=== PATIENT | male | born 1970 | race Caucasian/White ===

== ENCOUNTER 2020-12-05 17:58 | Emergency (ER) | payer OTHER ==
--- OUTSIDE RECORDS SUMMARY | 2020-12-05 18:01 | XMS REPORT | Continuity of Care Document ---
:1970 Author Organization [facility] t Address [address] [place] [address] Care Team Providers Name Role Phone SARMIENTO Attending Clinician Unavailable Problems Condition Condition Condition Status Onset Resolution Last Treating Co mments Source Name Details Category Date Date Treatment Clinician Date Cervical Cervical Problem Active Unive rs radicular radicular ity of pain pain [place] [facility] ans Degenerati Degenerati Problem Active U nivers ve ve ity of cervical cervical [place] spinal spinal Physici stenosis stenosis ans Cervical Cervical Problem Active Unive rs myelopathy myelopathy it y of [place] [facility] ans Right Right Problem Active Univers elbow pain elbow pain it y of [place] [facility] ans Rupture of Rupture of Problem Active U nivers distal distal ity of biceps biceps [place] tendon, tendon, Physici right, right, ans initial initial encounter encounter Allergies, Adverse Reactions, Alerts This patient has no known allergies or adverse reactions. Family History Family Member Diagnosis Comments Start Date Stop Date Source Unknown Family Family history of Family History University of Member diabetes mellitus [place] P [facility] Medications Ordered Filled Start Stop Current Ordering Indication Dosage Frequency Signature Comments Components Source Medication Medication Date Date Medication? Clinician (SIG) Name Name HYDROcodone HYDROcodone Yes SEBASTIÁN Take 1 Univers -Acetaminop -Acetaminop 2-25 SARMIENTO M.D. tablet ity of hen 5-325 hen 5-325 00:00: every 5-6 [place] MG Oral MG Oral 00 hours Physici Tablet Tablet daily for ans 7 days as needed for pain. traMADol traMADol 2014-10 Yes [place] 1 TAKE 1 [facility] HCl - 50 MG HCl - 50 MG 0-21 DODWAD TABLET ity of Oral Tablet Oral Tablet 00:00: M.D. EVERY 6 [place] 00 HOURS Physici NEEDED FOR ans PAIN. Gabapentin Gabapentin Yes [place] Take 1 cap Univers 300 MG Oral 300 MG Oral 9-11 DODWAD PO qhs for ity of Capsule Capsule 00:00: M.D. 3 days[place] by 1 tab ans PO BID for 3 days, taper up to 1 PO TID if tolerated by side effects amLODIPine- amLODIPine- Yes U nivers Olmesartan Olmesartan ity of TABS TABS [place] [facility] ans Bystolic Bystolic Yes Univers TABS TABS ity of [place] [facility] ans hydroCHLORO hydroCHLORO Yes U nivers thiazide thiazide ity of TABS TABS [place] [facility] ans Omeprazole- Omeprazole- Yes U nivers Sodium Sodium ity of Bicarbonate Bicarbonate [place] CAPS CAPS Physici ans metFORMIN metFORMIN Yes Unive rs HCl TABS HCl TABS ity of [place] Physici ans Vital Signs Vital Name Observation Time Observation Value Comments Source Systolic blood 2020-11-23 10:01:00 176 mm[Hg] [facility] pressure Physicians Diastolic blood 2020-11-23 10:01:00 88 mm[Hg] [facility] pressure Physicians Heart Rate 2020-11-23 10:01:00 76 /min [facility] Procedures Procedure Date / Time Performed Performing Clinician Sourc e [UTP] Ortho - Surgery 2020-11-23 00:00:00 [facility] Scheduling Physicians History of [place] [facility] [place] tendon surgery Physicians History of [place] [facility] xa surgery Physicians Plan of Care Planned Activity Planned Date Details Comments Source Diagnostic Test 2020-11-23 [UTP] [facility] Pending 00:00:00 Surgery Scheduling Physician s [code = [UTP] Ortho - Surgery Scheduling] Encounters Start End Encounter Admission Attending Care Care Encounter Source Date/Time Date/Time Type Type Clinicians Facility Department ID 2020-11-27 2020-11-27 RENEA Torres [facility] [id number] [facility] 10:00:00 10:00:00 SEBASTIÁN Mann, - Sugar Nelida M.D. [address] [place] Phys[facility] ans 2020-11-27 2020-11-27 Outpatient [id number] 05:03:00 05:03:00 [facility] 2020-11-23 2020-11-23 RENEA Torres [facility] [id number] [facility] 09:45:00 09:45:00 t; SEBASTIÁN SARMIENTO, - Sugar ity of [place] 2 POD Libby dutton M.D. 2 Physici ans Results This patient has no known results.
--- NOTE | 2020-12-05 20:10 | ER ---
Nurse's Notes [facility] Name: Landon Garcia Age: 50 yrs Sex: Male : 1970 Arrival Date: 12/05/2020 Time: 18:10 Bed 30 Private MD: Diagnosis: Right Upper Extremity Pain S/P Surgery Presentation: 12/05 18:25 Chief complaint: Patient states: had surgery on right arm last Monday , had distal iw bicep tendon repair done [facility] , was having a lot of pain last night and today from finger up to armpit is hurting, has not contacted the surgeon, has been taking hydrocodone but only for 7 days, was unsure if he is supposed to be in this much pain. Coronavirus screen: At this time, the client does not indicate any symptoms associated with coronavirus-19. Ebola Screen: Patient negative for fever greater than or equal to 101.5 degrees Fahrenheit, and additional compatible Ebola Virus Disease symptoms Patient denies exposure to infectious person. Patient denies travel to an Ebola-affected area in the 21 days before illness onset. No symptoms or risks identified at this time. Initial Sepsis Screen: Does the patient meet any 2 criteria? No. Patient's initial sepsis screen is negative. Does the patient have a suspected source of infection? No. Patient's initial sepsis screen is negative. Risk Assessment: Do you want to hurt yourself or someone else? Patient reports no desire to harm self or others. Onset of symptoms was December 05, 2020. 18:25 Method Of Arrival: Ambulatory iw 18:25 Acuity: EUGENE 3 iw Triage Assessment: 19:20 General: Appears in no apparent distress. Behavior is calm, cooperative. rr5 Historical: - Allergies: 18:28 No Known Allergies; iw - Home Meds: 18:28 Metformin Oral [Active]; amlodipine oral [Active]; Bystolic oral oral [Active]; iw Hydrochlorothiazide Oral [Active]; - PMHx: 18:28 Hypertension; Diabetes - NIDDM; iw - PSHx: 18:28 achilles tendon; iw - Immunization history:: Flu vaccine is not up to date. - Social history:: Smoking status: Patient denies any tobacco usage or history of. Screenin:30 Abuse screen: Denies threats or abuse. Denies injuries from another. Nutritional rr5 screening: No deficits noted. Tuberculosis screening: No symptoms or risk factors identified. Fall Risk None identified. Assessment: 19:20 General: Appears in no apparent distress. comfortable, Behavior is calm, cooperative, rr5 appropriate for age. 19:20 Pain: Complains of pain in right arm. Neuro: Level of Consciousness is awake, alert, rr5 obeys commands, Oriented to person, place, time. Cardiovascular: Capillary refill < 3 seconds Patient's skin is warm and dry. Respiratory: Airway is patent Respiratory effort is even, unlabored, Respiratory pattern is regular, symmetrical. Musculoskeletal: splint noted right arm. Vital Signs: 18:25 BP 185 / 96; Pulse 82; Resp 16; Temp 98.4; Pulse Ox 98% on R/A; Weight 154.22 kg; iw Height 6 ft. 3 in. (190.50 cm); Pain 7/10; 19:40 BP 162 / 80; Pulse 80; Resp 17; Pulse Ox 99% ; rr5 18:25 Body Mass Index 42.50 (154.22 kg, 190.50 cm) ED Course: 18:10 Patient arrived in ED. am2 18:27 Triage completed. iw 18:29 Arm band placed on. iw 19:18 Ron Veloz MD is Attending Physician. 7 19:30 Patient has correct armband on for positive identification. Call light in reach. rr5 20:24 Adi Lyman, RN is Primary Nurse. rr5 20:27 No provider procedures requiring assistance completed. Patient did not have IV access rr5 during this emergency room visit. Administered Medications: No medications were administered Outcome: 20:09 Discharge ordered by . mh7 20:27 Discharged to home ambulatory. rr5 20:27 Condition: stable 20:27 Discharge instructions given to patient, Instructed on discharge instructions, follow up and referral plans. Demonstrated understanding of instructions, follow-up care. 20:28 Patient left the ED. rr5 Signatures: Justa Kitchen RN RN Herminia Peguero [facility] Adi Lyman RN RN rr5 Ron Veloz MD MD [facility]
--- NOTE | 2020-12-05 20:10 | EDPHYS ---
Physician Documentation [facility] Name: Landon Garcia Age: 50 yrs Sex: Male : 1970 Arrival Date: 12/05/2020 Time: 18:10 Bed 30 Private MD: ED Physician Ron Veloz HPI: 12/05 19:54 This 50 yrs old Male presents to ER via Ambulatory with complaints of Arm mh7 Pain. 19:54 The patient or guardian complains of pain, that is acute. The complaints affect the mh7 right forearm. Context: The problem was sustained at home, resulted from States that he had surgery 1 week ago to repair a tendon in his right arm. 19:57 Onset: The symptoms/episode began/occurred 3 day(s) ago. Treatment prior to arrival mh7 includes: prescription medications, codeine. Modifying factors: The symptoms are alleviated by nothing. the symptoms are aggravated by movement. Associated signs and symptoms: Pertinent positives: pain, Pertinent negatives: deformity, erythema, fever, nausea, numbness, swelling, tingling, vomiting, warmth, weakness. Severity of symptoms: At their worst the symptoms were moderate, 3 day(s) ago, in the emergency department the symptoms have improved, moderately. Seen at another ED this morning had normal X-rays and ultrasound was negative for DVT per patient.. Surgery for tendon repair 1 week ago ran out of Hydrocodone and having pain in right arm. He has not contacted his surgeon about symptoms. He was seen at another ED this morning and had studies that were normal including US for DVT.. Historical: - Allergies: 18:28 No Known Allergies; iw - Home Meds: 18:28 Metformin Oral [Active]; amlodipine oral [Active]; Bystolic oral oral [Active]; iw Hydrochlorothiazide Oral [Active]; - PMHx: 18:28 Hypertension; Diabetes - NIDDM; iw - PSHx: 18:28 achilles tendon; iw - Immunization history:: Flu vaccine is not up to date. - Social history:: Smoking status: Patient denies any tobacco usage or history of. ROS: 19:57 Constitutional: Negative for fever, chills, and weight loss, Eyes: Negative for injury, mh7 pain, redness, and discharge, ENT: Negative for injury, pain, and discharge, Neck: Negative for injury, pain, and swelling, Cardiovascular: Negative for chest pain, palpitations, and edema, Respiratory: Negative for shortness of breath, cough, wheezing, and pleuritic chest pain, Abdomen/GI: Negative for abdominal pain, nausea, vomiting, diarrhea, and constipation, Back: Negative for injury and pain, : Negative for injury, bleeding, discharge, and swelling, Skin: Negative for injury, rash, and discoloration, Neuro: Negative for headache, weakness, numbness, tingling, and seizure, Psych: Negative for depression, anxiety, suicide ideation, homicidal ideation, and hallucinations, Allergy/Immunology: Negative for hives, rash, and allergies, Endocrine: Negative for neck swelling, polydipsia, polyuria, polyphagia, and marked weight changes, Hematologic/Lymphatic: Negative for swollen nodes, abnormal bleeding, and unusual bruising. Exam: 19:57 Constitutional: This is a well developed, well nourished patient who is awake, alert, mh7 and in no acute distress. Head/Face: Normocephalic, atraumatic. Eyes: Pupils equal round and reactive to light, extra-ocular motions intact. Lids and lashes normal. Conjunctiva and sclera are non-icteric and not injected. Cornea within normal limits. Periorbital areas with no swelling, redness, or edema. Neck: Trachea midline, no thyromegaly or masses palpated, and no cervical lymphadenopathy. Supple, full range of motion without nuchal rigidity, or vertebral point tenderness. No Meningismus. Chest/axilla: Normal chest wall appearance and motion. Nontender with no deformity. No lesions are appreciated. Cardiovascular: Regular rate and rhythm with a normal S1 and S2. No gallops, murmurs, or rubs. Normal PMI, no JVD. No pulse deficits. Respiratory: Lungs have equal breath sounds bilaterally, clear to auscultation and percussion. No rales, rhonchi or wheezes noted. No increased work of breathing, no retractions or nasal flaring. Abdomen/GI: Soft, non-tender, with normal bowel sounds. No distension or tympany. No guarding or rebound. No evidence of tenderness throughout. Back: No spinal tenderness. No costovertebral tenderness. Full range of motion. 19:57 Neuro: Awake and alert, GCS 15, oriented to person, place, time, and situation. Cranial nerves II-XII grossly intact. Motor strength 5/5 in all extremities. Sensory grossly intact. Cerebellar exam normal. Normal gait. Psych: Awake, alert, with orientation to person, place and time. Behavior, mood, and affect are within normal limits. 19:57 Musculoskeletal/extremity: Extremities: noted in the right arm: Splint on right upper extremity. Patient declined to allow removal of splint to evaluate upper extremity. Fingers with capillary refill <2 seconds, pink color, no swelling compared with left side, no erythema., ROM: intact in all extremities, Perfusion: the extremity is normally perfused throughout, pink, warm, with brisk capillary refill, only fingers checked as patient declined removal of right upper extremity splint.. Sensation intact. Vital Signs: 18:25 BP 185 / 96; Pulse 82; Resp 16; Temp 98.4; Pulse Ox 98% on R/A; Weight 154.22 kg; iw Height 6 ft. 3 in. (190.50 cm); Pain 7/10; 19:40 BP 162 / 80; Pulse 80; Resp 17; Pulse Ox 99% ; rr5 18:25 Body Mass Index 42.50 (154.22 kg, 190.50 cm) iw MDM: 19:57 Differential diagnosis: closed fracture, contusion, abrasion, tendonitis. Data 7 reviewed: vital signs, nurses notes. Counseling: I had a detailed discussion with the patient and/or guardian regarding: the historical points, exam findings, and any diagnostic results supporting the discharge/admit diagnosis, the need for outpatient follow up, to return to the emergency department if symptoms worsen or persist or if there are any questions or concerns that arise at home. Response to treatment: the patient's symptoms have mildly improved after treatment. Refusal of service: The patient/guardian displays adequate decision making capability and despite a detailed discussion of alternatives, benefits, risks, and consequences refuses: all lab tests, Medications, Removal of right upper extremity splint. 20:09 Patient medically screened. 7 Administered Medications: No medications were administered Disposition: 12/05/20 20:09 Discharged to Home. Impression: Right Upper Extremity Pain S/P Surgery. - Condition is Stable. - Discharge Instructions: Musculoskeletal Pain. - Medication Reconciliation Form, Thank You Letter, Antibiotic Education, Prescription Opioid Use form. - Follow up: Private Physician; When: 1 - 2 days; Reason: Worsening of condition, Recheck today's complaints, Continuance of care, Re-evaluation by your physician. - Problem is an ongoing problem. - Symptoms have improved. Signatures: Justa Kitchen RN RN iw Adi Lyman RN RN rr5 Ron Veloz MD MD mh7 Corrections: (The following items were deleted from the chart) 20:28 20:09 12/05/2020 20:09 Discharged to Home. Impression: Right Upper Extremity Pain S/P rr5 Surgery. Condition is Stable. Forms are Medication Reconciliation Form, Thank You Letter, Antibiotic Education, Prescription Opioid Use. Follow up: Private Physician; When: 1 - 2 days; Reason: Worsening of condition, Recheck today's complaints, Continuance of care, Re-evaluation by your physician. Problem is an ongoing problem. Symptoms have improved. mh7
[2020-12-05 20:35] VITALS: BP 185/96; TEMP 98.4; O2SAT 98
== END 2020-12-05 20:28 | disposition home or self-care (01) ==
LOC: ER 17:58
DX: G89.18 Other acute postprocedural pain (principal); Z98.890 Other specified postprocedural states; I10 Essential (primary) hypertension; E11.9 Type 2 diabetes mellitus without complications
CPT/HCPCS: 99281

== ENCOUNTER 2023-08-14 18:54 | Emergency (ER) | payer OTHER ==
--- OUTSIDE RECORDS SUMMARY | 2023-08-14 19:09 | XMS REPORT | Continuity of Care Document ---
:1970 Author Organization [facility] t Address [address] [place] [address] Care Team Providers Name Role Phone PCP, PATIENT DOES NOT HAVE A Primary Care Physician Unavaila JOSE LUIS Carrillo Attending Clinician Unavailable FIONA WU K.HmD Attending Clinician Unavailable Fiona Wu MD KDmH. Attending Clinician Doctor Unassigned, [place] Attending Clinician Unavailable SEBASTIÁN SARMIENTO M.D. Attending Clinician Unavailable LETI TELLO APRN Attending Clinician Unavailable JOSE LUIS ANTONIO APRN Attending Clinician Unavailable Payers Payer Name Policy Type Policy Number Effective Date Expiration Date S yvette CIGNA OPEN [id number] 2002 00:00:00 ACCESS/OPEN ACCESS PLUS CIGNA II [id number] 2022 00:00:00 Problems Condition Condition Condition Status Onset Resolution Last Treating Co mments Source Name Details Category Date Date Treatment Clinician Date Right Right Disease Active [facility] elbow pain elbow pain 02-11 He alth 00:00: 00 S/P tendon S/P tendon Disease Active U T repair repair - Health 00:00: 00 Status Status Problem Active UT post post Physici tendon tendon ans repair repair Cervical Cervical Problem Active UT radicular radicular Phys ici pain pain ans Postoperat Postoperat Problem Active U T joel wound joel wound Phys ici infection infection ans Degenerati Degenerati Problem Active U T ve ve Physici cervical cervical ans spinal spinal stenosis stenosis Cervical Cervical Problem Active UT myelopathy myelopathy Ph ysici ans Right Right Problem Active UT elbow pain elbow pain Ph ysici ans Rupture of Rupture of Problem Active U T distal distal Physici biceps biceps ans tendon, tendon, right, right, initial initial encounter encounter Allergies, Adverse Reactions, Alerts Allergy Allergy Status Severity Reaction(s) Onset Inactive Treating Comm ents Source Name Type Date Date Clinician CARVEDIL DRUG Active Rash 2022-10 Univers OL INGREDI 0-17 ity of 00:00: [place] [facility] Branch NIFEDIPI DRUG Active Swelling 2022-10 Univer s NE INGREDI 0-17 ity of 00:00: [place] [facility] Nifedipi Propensi Active Swelling 2022-10 Univ ers ne ty to 0-17 ity of adverse 00:00: [place] reaction [address] [place] [address] s [place] NO KNOWN Drug Active Univers ALLERGIE Class ity of [facility] Family History Family Member Diagnosis Comments Start Date Stop Date Source Unknown Family Family history of Family History [facility] Member diabetes mellitus Social History Social Habit Start Date Stop Date Quantity Comments Source Sexual orientation Univer [facility] Exposure to Not sure [facility] SARS-CoV-2 (event) Tobacco use and 2021-02-11 2021-02-11 Never used [facility] exposure 00:00:00 00:00:00 Alcohol intake 2021-02-11 2021-02-11 Current drinker [facility] alth 00:00:00 00:00:00 of alcohol (finding) Alcohol Comment 2021-02-11 2021-02-11 ocassional [facility] 00:00:00 00:00:00 Sex [birth year] Universit y of 00:00:00 00:00:00 [facility] Smoking Status Start Date Stop Date Source Tobacco smoking consumption Univ [facility] Never smoker [facility] Medications Ordered Filled Start Stop Current Ordering Indication Dosage Frequency Signature Comments Components Source Medication Medication Date Date Medication? Clinician (SIG) Name Name nebivoloL 2022-10 Yes 10mg Take 1 Univer s 10 mg 0-17 tablet by ity of tablet 00:00: mouth in [place] [address] the morning Branch and 1 tablet in the evening. nebivoloL 2022-10 Yes 10mg Take 1 Univer s 10 mg 0-17 tablet by ity of tablet 00:00: mouth in [place] the morning Branch and 1 tablet in the evening. nebivoloL 2022-103- No 20mg Take 2 Unive rs 10 mg 0-11 10-17 tablets by ity of tablet 00:00: 00:00 mouth in [place] 00 :00 the Medical morning. Branch nebivoloL 2022-103- No 20mg Take 2 Unive rs 10 mg 0-11 10-17 tablets by ity of tablet 00:00: 00:00 mouth in [place] 00 :00 the Medical morning. Branch sildenafiL 2022- Yes TAKE 1 Unive rs 100 mg 0-10 TABLET BY ity of tablet 00:00: MOUTH [place] [address] EVERY DAY Medical NEEDED Branch sildenafiL 2022-1 Yes TAKE 1 Unive rs 100 mg 0-10 TABLET BY ity of tablet 00:00: MOUTH [place] [address] EVERY DAY Medical NEEDED Branch lovastatin 2022- Yes Univers 20 mg 0-05 ity of tablet 00:00: [place] 00 Medical Branch metFORMIN 2022-1 Yes Univers 1,000 mg 0-05 ity of tablet 00:00: [place] 00 Medical Branch lovastatin 2022-1 Yes Univers 20 mg 0-05 ity of tablet 00:00: [place] 00 Medical Branch metFORMIN 2022-1 Yes Univers 1,000 mg 0-05 ity of tablet 00:00: [place] 00 Medical Branch temazepam 2022-1 Yes Univers 30 mg 0-03 ity of capsule 00:00: [place] 00 Medical Branch temazepam 2022-1 Yes Univers 30 mg 0-03 ity of capsule 00:00: [place] 00 Medical Branch FARXIGA 10 2022-0 Yes 10mg Take 1 Unive rs mg tablet 9-27 tablet by ity o f 00:00: mouth in [place] 00 the Medical morning. Branch FARXIGA 10 2022-0 Yes 10mg Take 1 Unive rs mg tablet 9-27 tablet by ity o f 00:00: mouth in [place] 00 the Medical morning. Branch hydroCHLORO 3-0 Yes 25mg Take 1 Univ ers thiazide 25 9-11 tablet by ity of mg tablet 00:00: mouth in [facility] 00 the Medical morning. Branch omeprazole 2022-0 Yes 40mg Take 1 Unive rs 40 mg 9-11 capsule by ity of capsule 00:00: mouth in [place] 00 the Medical morning. Branch hydroCHLORO 3-0 Yes 25mg Take 1 Univ ers thiazide 25 9-11 tablet by ity of mg tablet 00:00: mouth in [facility] 00 the Medical morning. Branch omeprazole 0 Yes 40mg Take 1 Unive rs 40 mg 9-11 capsule by ity of capsule 00:00: mouth in [place] the Medical morning. Branch amLODIPine- 2022-0 Yes 2{capsu Take 2 U nivers benazepriL 9-07 le} capsules ity o f 10-20 mg 00:00: by mouth [place] per capsule 00 in the Medica l morning. Branch amLODIPine- 0 Yes 2{capsu Take 2 U nivers benazepriL 9-07 le} capsules ity o f 10-20 mg 00:00: by mouth [place] per capsule 00 in the Medica l morning. Branch hydroCHLORO Yes UT thiazide 5-13 Health (HYDRODiuri 18:45: l) 12.5 MG 00 tablet hydroCHLORO 0 Yes UT thiazide 5-13 Health (HYDRODiuri 18:45: l) 12.5 MG 00 tablet amLODIPine- 0 Yes UT benazepril 4-27 Health (Lotrel) 00:00: 10-20 MG 00 capsule amLODIPine- 2020-0 Yes UT benazepril 4-27 Health (Lotrel) 00:00: 10-20 MG 00 capsule sildenafil 2020- Yes 100mg Take 100 UT (Viagra) 4-26 mg by Health 100 MG 00:00: mouth 1 tablet 00 (one) time each day if needed. sildenafil 2020-0 Yes 100mg Take 100 UT (Viagra) 4-26 mg by Health 100 MG 00:00: mouth 1 tablet 00 (one) time each day if needed. metFORMIN 0 Yes UT (Glucophage 4-23 Health ) 1000 MG 00:00: tablet 00 metFORMIN 2020-0 Yes UT (Glucophage 4-23 Health ) 1000 MG 00:00: tablet 00 Bystolic 10 0 Yes 20mg QD Take 20 mg UT MG tablet 3-23 by mouth 1 Heal 00:00: (one) time 00 each day. Bystolic 10 0 Yes 20mg QD Take 20 mg UT MG tablet 3-23 by mouth 00:00: (one) time 00 each day. Cephalexin Cephalexin 2021-0 Yes NICHOLETTE 1 Q0.25D TAKE 1 UT 500 MG Oral 500 MG Oral 3-16 TY DIGITAL ACCOUNT MANAGER TABLET 4 Physici Tablet Tablet 00:00: TIMES ans 00 DAILY omeprazole Yes QD Take by UT (PriLOSEC) 3-12 mouth [address] 00:00: (one) time capsule 00 each day. omeprazole Yes QD Take by UT (PriLOSEC) 3-12 mouth [address] 00:00: (one) time capsule 00 each day. HYDROcodone HYDROcodone Yes SEBASTIÁN Take 1 UT -Acetaminop -Acetaminop 2-25 SARMIENTO M.D. tablet Physici hen 5-325 hen 5-325 00:00: every 5-6 ans MG Oral MG Oral 00 hours Tablet Tablet daily for 7 days as needed for pain. traMADol traMADol 2014-10 Yes MADISON 1 TAKE 1 UT HCl - 50 MG HCl - 50 MG 0-21 DODWAD TABLET Physici Oral Tablet Oral Tablet 00:00: M.D. EVERY 6 ans 00 HOURS NEEDED FOR PAIN. Gabapentin Gabapentin Yes MADISON Take 1 cap UT 300 MG Oral 300 MG Oral 9-11 DODWAD PO qhs for Physici Capsule Capsule 00:00: M.D. 3 days, ans 00 followed by 1 tab PO BID for 3 days, taper up to 1 PO TID if tolerated by side effects amLODIPine- amLODIPine- Yes U T Olmesartan Olmesartan Phy sici TABS TABS ans Bystolic Bystolic Yes UT TABS TABS Physici ans hydroCHLORO hydroCHLORO Yes U T thiazide thiazide Physici TABS TABS ans Omeprazole- Omeprazole- Yes U T Sodium Sodium Physici Bicarbonate Bicarbonate a ns CAPS CAPS metFORMIN metFORMIN Yes UT HCl TABS HCl TABS Physici ans Vital Signs Vital Name Observation Time Observation Value Comments Source Systolic blood 2023-07-18 20:14:00 173 [facility] Diastolic blood 2023-07-18 20:14:00 106 mm[Hg] [facility] [place] Heart rate 2023-07-18 20:14:00 88 /min [facility] Body height 2023-07-18 20:14:00 190.5 cm [facility] Body weight 2023-07-18 20:14:00 154.087 kg [facility] BMI 2023-07-18 20:14:00 42.46 kg/m2 [facility] Oxygen saturation 2023-07-18 20:14:00 96 /min [facility] in Arterial blood Medical Br anch by Pulse oximetry Body height 2021-02-11 18:42:00 190.5 cm [facility] Body weight 2021-02-11 18:42:00 149.687 kg [facility] BMI 2021-02-11 18:42:00 41.25 kg/m2 [facility] Systolic blood 2020-11-23 10:01:00 176 mm[Hg] [facility] pressure Diastolic blood 2020-11-23 10:01:00 88 mm[Hg] [facility] Ph ysicians pressure Heart Rate 2020-11-23 10:01:00 76 /min [facility] Procedures Procedure Date / Time Performed Performing Clinician Lamont carlene HB ECG ROUTINE & 2023-07-18 20:07:05 Fiona Wu [facility] RHYTHM STRIP [facility] ASSIGNMENT OF BENEFITS 2023-07-18 19:51:38 Doctor Unassigned, No [facility] Post Op Promis 29 2020-12-30 00:00:00 [facility] Physici ans Survey [UTP] Ortho - Surgery 2020-11-23 00:00:00 [facility] Phy sicians Scheduling History of Achilles [facility] Physician s tendon surgery History of Neck [facility] surgery Plan of Care Planned Activity Planned Date Details Comments Source Diagnostic Test 2020-11-23 00:00:00 [UTP] Ortho - Surgery [facility] Pending Scheduling [code = [UTP] Ortho - Surgery Scheduling] Encounters Start End Encounter Admission Attending Care Care Encounter Source Date/Time Date/Time Type Type Clinicians Facility Department ID 2021-04-09 Outpatient TY, [facility] [id number] [place] 09:25:59 NICHOLETTE Heal 2021-02-11 Outpatient TY, [facility] [id number] [place] 14:06:31 [facility] 2023-07-18 2023-07-18 Outpatient R [facility] [id number] Univers 15:00:00 15:42:03 SENDIL ity of [facility] 2023-07-18 2023-07-18 Office Wu, MTNIMA [id number] [facility] 15:00:00 15:42:03 Visit Fiona MARTIN [id number] ity of [facility] [id number] [id number] Vt dical [facility] 059 [facility] 2023-07-18 2023-07-18 Orders Doctor MATEUSZ [id number] Univers 00:00:00 00:00:00 Only Unassigned, [place] [id number] ity of [place] [facility] [id number] Gopal as [id number] [address] 2021-05-03 2021-05-03 Office TyRENEA ORTHO [id number] [place] 07:51:12 08:32:04 Visit Nicholette SUGAR [id number] Health [place] [id number] 1 2021-02-11 2021-02-11 Office Ty, RENEA ORTHO [id number] [place] 13:37:23 14:08:03 Visit Nicholette SUGAR [id number] Health [place] [id number] 1 2020-12-23 2020-12-23 Appointmen RENEA SARMIENTO Orthopedics [id number] [place] 16:15:00 16:15:00 t; SEBASTIÁN SARMIENTO, - Sugar Phys juan antonio LOWERY M.D. [place] 1 ans MCaroline 2020-12-17 2020-12-17 Appointmen RENEA TELLO Orthopedics [id number] [place] 13:30:00 13:30:00 t; BERNIE LANDEROS - Sugar Michael Herzog 1 ans BERNIE LANDEROS 2020-12-15 2020-12-15 Appointmen RENEA ANTONIO Orthopedics [id number] [place] 10:30:00 10:30:00 t; JOSE LUIS ANTONIO - Sugar Ph diogenes AMAYA DIGITAL ACCOUNT MANAGER [place] 1 ans , DIGITAL ACCOUNT MANAGER 2020-12-07 2020-12-07 Appointmen [facility] Orthopedics [id number] [place] 11:30:00 11:30:00 t; SEBASTIÁN SARMIENTO - Sugar Phys Trey Whiting 2 POD yeyo Yang 2 2020-11-27 2020-11-27 Appointmen [facility] Orthopedics [id number] [place] 10:00:00 10:00:00 t; SEBASTIÁN SARMIENTO - Sugar Trey Barros 1 yeyo Yang 2020-11-23 2020-11-23 Appointmen [facility] Orthopedics [id number] [place] 09:45:00 09:45:00 t; SEBASTIÁN SARMIENTO - Sugar Phys Trey Whiting 2 POD yeyo Yang 2 Results This patient has no known results.
[2023-08-14] MEDS ORDERED: MORPHINE 4 MG/ML SYR ONE ×2 (19:29→22:54)
[2023-08-14 20:14] LABS: Hematocrit 43.8 % (39.6-49.0); MCV 90.9 fL (80-100); MPV 8.7 fL (7.6-11.3); Platelets 277 thou/uL (152-406); RBC Red Blood Cell Count 4.82 M/uL (4.33-5.43)
[2023-08-14 20:23] LABS: Potassium 3.1 mEq/L (3.5-5.1)
--- NOTE | 2023-08-14 22:07 | RAD REPORT ---
EXAM DESCRIPTION: CT - Knee Left W Con - 08/14/2023 9:36 pm CLINICAL HISTORY: Left knee pain and swelling status post fall COMPARISON: X-ray August 14, 2023 TECHNIQUE: Computed axial tomography left knee obtained. 100 cc Isovue-[address] administered [address] CT scans are performed using dose optimization technique as appropriate and may include automated exposure control or mA/KV adjustment according to patient size. FINDINGS: The distal left superficial femoral, popliteal, proximal posterior tibial, proximal anteri or tibial and proximal peritoneal arteries are patent. No extravasation of contrast. No arterial tear visualized IMPRESSION: No evidence of an arterially injury
--- NOTE | 2023-08-14 22:07 | RAD REPORT ---
EXAM DESCRIPTION: RAD - Knee Left 3 View - 08/14/2023 7:27 pm CLINICAL HISTORY: Left knee pain status post injury FINDINGS: No fracture or dislocation is seen. Small joint effusion
--- NOTE | 2023-08-14 22:07 | RAD REPORT ---
EXAM DESCRIPTION: CT - Knee Left Wo Con - 08/14/2023 9:36 pm CLINICAL HISTORY: Left knee pain and swelling status post fall COMPARISON: X-ray August 14, 2023 TECHNIQUE: Computed axial tomography left knee obtained All CT scans are performed using dose optimization technique as appropriate and may include automated exposure control or mA/KV adjustment according to patient size. FINDINGS: No fracture visualized. No dislocation Small knee joint effusion. Edema within subcutaneous tissues. IMPRESSION: No fracture is seen. If patient continues to have symptoms to suggest a ligamentous, tendon or meniscal injury then MRI wo uld be recommended
[2023-08-14] MEDS ORDERED: POTASSIUM 25 MEQ EFFERV TAB ONE (22:08)
[2023-08-14] MEDS ORDERED: INSULIN REGULAR (HUMAN) 100 UNIT/ML ONE (22:09)
--- NOTE | 2023-08-14 22:42 | ER ---
Nurse's Notes [facility] Name: Landon Garcia Age: 52 yrs Sex: Male : 1970 Arrival Date: 08/14/2023 Time: 18:54 Bed 19 Private MD: Diagnosis: Pain in left knee Presentation: 08/14 18:58 Chief complaint: EMS states: pt slipped and fell in the mud while doing yard work. felt kc6 something pop to the left knee. 1gm IV Tylenol, 50mcg of Fentanyl and 4mg of Zofran given by EMS. BGL en route 300. Coronavirus screen: At this time, the client does not indicate any symptoms associated with coronavirus-19. Ebola Screen: No symptoms or risks identified at this time. Initial Sepsis Screen: Does the patient meet any 2 criteria? No. Patient's initial sepsis screen is negative. Does the patient have a suspected source of infection? No. Patient's initial sepsis screen is negative. Risk Assessment: Do you want to hurt yourself or someone else? Patient reports no desire to harm self or others. Onset of symptoms was August 14, 2023. 18:58 Method Of Arrival: EMS: [facility] kc6 18:58 Acuity: EUGENE 3 kc6 Triage Assessment: 18:59 General: Appears in no apparent distress. comfortable, Behavior is calm, cooperative, kc6 appropriate for age. Pain: Complains of pain in left knee Pain does not radiate. Pain currently is 5 out of 10 on a pain scale. EENT: No signs and/or symptoms were reported regarding the EENT system. Neuro: Level of Consciousness is awake, alert, obeys commands, Oriented to person, place, time, situation, Appropriate for age. Cardiovascular: Capillary refill < 3 seconds. Respiratory: Airway is patent Trachea midline Respiratory effort is even, unlabored, Respiratory pattern is regular, symmetrical. GI: No signs and/or symptoms were reported involving the gastrointestinal system. : No signs and/or symptoms were reported regarding the genitourinary system. Derm: No signs and/or symptoms reported regarding the dermatologic system. Skin is intact, is healthy with good turgor, Skin is pink, warm \T\ dry. Musculoskeletal: No signs and/or symptoms reported regarding the musculoskeletal system. Circulation, motion, and sensation intact. Capillary refill < 3 seconds, Range of motion: limited in left knee. Historical: - Allergies: 18:59 No Known Allergies; kc6 - PMHx: 18:59 Diabetes - NIDDM; Hypertension; Gastroesophageal reflux disease; Hypercholesterolemia; kc6 - PSHx: 18:59 None; kc6 - Immunization history:: Client reports having NOT received the Covid vaccine. Flu vaccine is not up to date. - Social history:: Smoking status: Patient reports use of chewing tobacco. Screenin:01 [facility] ED Fall Risk Assessment (Adult) History of falling in the last 3 months, kc6 including since admission Yes- single mechanical fall (1 pt) Confusion or Disorientation No (0 pts) Intoxicated or Sedated No (0 pts) Impaired Gait Yes (1 pt) Mobility Assist Device Used No (0 pt) Altered Elimination No (0 pt) Score/Fall Risk Level 0 - 2 = Low Risk. Abuse screen: Denies threats or abuse. Denies injuries from another. Nutritional screening: No deficits noted. Tuberculosis screening: No symptoms or risk factors identified. Assessment: 19:02 Reassessment: please see triage assessment. kc6 19:20 General: Appears uncomfortable, Behavior is calm, cooperative. Pain: Complains of pain ha1 in left knee Pain does not radiate. Pain currently is 8 out of 10 on a pain scale. Quality of pain is described as throbbing, Pain began suddenly. Neuro: Level of Consciousness is awake, alert, obeys commands, Oriented to person, place, time, situation. Cardiovascular: Capillary refill < 3 seconds Patient's skin is warm and dry. Cardiovascular:. Respiratory: Airway is patent Respiratory effort is even, unlabored, Respiratory pattern is regular, symmetrical. GI: No signs and/or symptoms were reported involving the gastrointestinal system. Abdomen is round non-distended. : No signs and/or symptoms were reported regarding the genitourinary system. Derm: Skin is pink, warm \T\ dry. Musculoskeletal: Circulation, motion, and sensation intact. Reports pain in left knee. 19:50 Reassessment: Patient and/or family updated on plan of care and expected duration. Pain ha1 level reassessed. Patient is alert, oriented x 3, equal unlabored respirations, skin warm/dry/pink. PAIN 3/10 Patient states feeling better. Patient states symptoms have improved. 22:00 Reassessment: Patient and/or family updated on plan of care and expected duration. Pain ha1 level reassessed. Patient is alert, oriented x 3, equal unlabored respirations, skin warm/dry/pink. 23:00 Reassessment: Patient and/or family updated on plan of care and expected duration. Pain ha1 level reassessed. Patient is alert, oriented x 3, equal unlabored respirations, skin warm/dry/pink. Patient states feeling better. Patient states symptoms have improved. 23:31 Reassessment: Patient and/or family updated on plan of care and expected duration. Pain ha1 level reassessed. Patient is alert, oriented x 3, equal unlabored respirations, skin warm/dry/pink. Vital Signs: 18:58 Resp 19 S; Temp 98.4(O); Weight 158.76 kg (R); Height 6 ft. 2 in. (R); Pain 5/10; kc6 19:07 BP 187 / 103; Pulse 84; Pulse Ox 98% on R/A; kc6 20:00 BP 185 / 104; Pulse 80; Resp 18 S; Pulse Ox 98% on R/A; ha1 21:45 BP 160 / 93; Pulse 86; Resp 18; Pulse Ox 97% on R/A; ha1 22:40 BP 169 / 98; Pulse 86; Resp 18 S; Pulse Ox 97% on R/A; ha1 23:07 BP 165 / 98; Pulse 80; Resp 18 S; Pulse Ox 98% on R/A; ha1 18:58 Body Mass Index 44.94 (158.76 kg, 187.96 cm) kc6 18:58 Pain Scale: Adult kc6 ED Course: 18:57 Patient arrived in ED. kc6 18:58 Jacob Brar PA is PHCP. cp 18:58 Raphael Maloney MD is Attending Physician. cp 18:59 Triage completed. kc6 18:59 Arm band placed on. kc6 19:01 Maintain EMS IV. Dressing intact. Good blood return noted. Site clean \T\ dry. Gauge \T\ abbie 6 site: 20G LAC. Patient maintains SpO2 saturation greater than 95% on room air. 19:02 Patient has correct armband on for positive identification. Bed in low position. Call kc6 light in reach. Side rails up X 1. Adult w/ patient. Client placed on continuous cardiac and pulse oximetry monitoring. NIBP monitoring applied. 19:13 Natalya Aguirre, RN is Primary Nurse. ha1 19:29 XRAY Knee LEFT 3 view In Process Unspecified. EDMS 21:38 Knee Left W Con In Process Unspecified. EDMS 21:38 Knee Left Wo Con In Process Unspecified. EDMS 22:41 Atul Edwards MD is Referral Physician. cp 23:32 No provider procedures requiring assistance completed. IV discontinued, intact, ha1 bleeding controlled, No redness/swelling at site. Pressure dressing applied. 23:33 Provided Education on: follow up with orthopedic . ha1 Administered Medications: 19:20 Drug: morphine IVP or IV 4 mg IVP once over 4 mins Route: IVP; Infused Over: 4 mins; ha1 Site: left antecubital; 19:50 Follow up: Response: No adverse reaction; Pain is decreased; RASS: Alert and Calm (0) ha1 22:01 Drug: Insulin Regular Human IVP 7 units IVP once {Co-Signature: pf1 (Trista Meadows RN).} Route: IVP; Site: left antecubital; 23:30 Follow up: Response: No adverse reaction ha1 22:02 Drug: Potassium PO Effervescent Tablet 50 mEq PO once; dissolve in 4 ounces of water or kl juice Route: PO; 23:30 Follow up: Response: No adverse reaction ha1 22:02 Drug: NS 0.9% IV 1000 ml IV at 1 bolus Per protocol; 1000 mL bolus Route: IV; Rate: 1 kl bolus; Site: left antecubital; 23:30 Follow up: Response: No adverse reaction; IV Status: Completed infusion; IV Intake: ha1 1000ml 22:16 CANCELLED (Physician Discretion): hydrocodone-[id number] mg-325 mg 1 tabs PO once cp 22:35 Drug: Ibuprofen PO 800 mg PO once Route: PO; ha1 22:40 Drug: morphine IVP or IV 4 mg IVP once over 4 mins Route: IVP; Infused Over: 4 mins; ha1 Site: left antecubital; 23:07 Follow up: Response: No adverse reaction; Pain is decreased; RASS: Alert and Calm (0) ha1 Medication: 19:56 VIS not applicable for this client. ha1 Intake: 23:30 IV: 1000ml; Total: 1000ml. ha1 Outcome: 22:42 Discharge ordered by . cp 23:32 Discharged to home via wheelchair, with crutches, with family, ha1 23:32 Condition: stable 23:32 Discharge instructions given to patient, family, Instructed on discharge instructions, follow up and referral plans. medication usage, Demonstrated understanding of instructions, follow-up care, medications, Prescriptions given X 2, 23:33 Patient left the ED. ha1 Signatures: Dispatcher [employer] EDMS Tawny Michelle RN RN Jacob Barry, Natalya Rosa cp, RN RN ha1 Judi Novak RN RN kc6 Trista Meadows RN pf1
--- NOTE | 2023-08-14 22:42 | EDPHYS ---
Physician Documentation [facility] Name: Landon Garcia Age: 52 yrs Sex: Male : 1970 Arrival Date: 08/14/2023 Time: 18:54 Bed 19 Private MD: ED Physician Raphael Maloney HPI: 08/14 19:05 This 52 yrs old Male presents to ER via EMS with complaints of Fall Injury, Knee Pain. cp 19:05 Details of fall: The patient fell from an upright position, while walking. Onset: The cp symptoms/episode began/occurred just prior to arrival. Associated injuries: The patient sustained left knee, painful injury, swelling. Severity of symptoms: in the emergency department the symptoms have improved, EMS administered IV fentanyl and acetaminophen. 19:05 Patient reports slipping and losing balance while walking outside in mud, felt "pop" in cp left knee. Historical: - Allergies: 18:59 No Known Allergies; kc6 - PMHx: 18:59 Diabetes - NIDDM; Hypertension; Gastroesophageal reflux disease; Hypercholesterolemia; kc6 - PSHx: 18:59 None; kc6 - Immunization history:: Client reports having NOT received the Covid vaccine. Flu vaccine is not up to date. - Social history:: Smoking status: Patient reports use of chewing tobacco. ROS: 19:10 MS/extremity: Positive for pain, swelling, tenderness, of the left knee, cp 19:10 Back: Negative for pain at rest, pain with movement, cp 19:10 Neck: Negative for pain with movement, pain at rest, stiffness, cp 19:10 Neuro: Negative for numbness, 19:10 All other systems are negative, Exam: 19:15 Constitutional: The patient appears in no acute distress, alert, awake, non-toxic, well cp developed, well nourished, obese, 19:15 Head/Face: Normocephalic, atraumatic. cp 19:15 Neck: ROM/movement: is normal, is supple, without pain, no range of motions cp limitations, 19:15 Chest/axilla: Inspection: normal, cp 19:15 Cardiovascular: Rate: normal, 19:15 Respiratory: the patient does not display signs of respiratory distress, Respirations: normal, no use of accessory muscles, no retractions, labored breathing, is not present, 19:15 Abdomen/GI: Exam negative for discomfort, distension, guarding, Inspection: abdomen appears normal, 19:15 Back: pain, is absent, ROM is normal, 19:15 Musculoskeletal/extremity: Extremities: grossly normal except: noted in the left knee: decreased ROM, pain, mild swelling and tenderness to palpation noted suprapatellar, ROM: limited active range of motion, in the left knee, Perfusion: the extremity is normally perfused throughout, the left foot and left leg Sensation intact. 19:15 Neuro: Orientation: to person, place \\T\\ time. Mentation: is normal, Vital Signs: 18:58 Resp 19 S; Temp 98.4(O); Weight 158.76 kg (R); Height 6 ft. 2 in. (R); Pain 5/10; kc6 19:07 BP 187 / 103; Pulse 84; Pulse Ox 98% on R/A; kc6 20:00 BP 185 / 104; Pulse 80; Resp 18 S; Pulse Ox 98% on R/A; ha1 21:45 BP 160 / 93; Pulse 86; Resp 18; Pulse Ox 97% on R/A; ha1 22:40 BP 169 / 98; Pulse 86; Resp 18 S; Pulse Ox 97% on R/A; ha1 23:07 BP 165 / 98; Pulse 80; Resp 18 S; Pulse Ox 98% on R/A; ha1 18:58 Body Mass Index 44.94 (158.76 kg, 187.96 cm) kc6 18:58 Pain Scale: Adult kc6 MDM: 18:59 Patient medically screened. 20:00 Differential diagnosis: contusion, fracture, laceration, sprain, ligament injury. 22:41 Data reviewed: vital signs, nurses notes, lab test result(s), radiologic studies, CT cp scan, plain films. 22:41 I considered the following discharge prescriptions or medication management in the emergency department Medications were administered in the Emergency Department. See NOV. 22:41 Independent interpretation of the following test(s) in the Emergency Department X-Ray: My interpretation is images of left knee negative for fracture. 22:41 Care significantly affected by the following chronic conditions: Diabetes, cp Hypertension. Counseling: I had a detailed discussion with the patient and/or guardian regarding the historical points, exam findings, and any diagnostic results supporting the discharge/admit diagnosis, radiology results, the need for outpatient follow up, for definitive care, a orthopedic surgeon, to return to the emergency department if symptoms worsen or persist or if there are any questions or concerns that arise at home. Response to treatment: pain improved, patient placed in knee immobilizer, and as a result, I will discharge patient. 08/14 19:07 Order name: Basic Metabolic Panel; Complete Time: 20:34 08/14 20:35 Interpretation: Normal except: NA 132; K 3.1; CL 96; GLUC 297; BUN 19; GFR 83. 08/14 19:07 Order name: CBC with Diff; Complete Time: 20:34 08/14 23:09 Order name: Glucose, Ancillary Testing EDMS 08/14 18:59 Order name: XRAY Knee LEFT 3 view; Complete Time: 22:13 08/14 22:13 Interpretation: Report reviewed. 08/14 19:16 Order name: Knee Left W Con; Complete Time: 22:13 EDNY 08/14 21:22 Order name: Knee Left Wo Con; Complete Time: 22:13 EDNY 08/14 22:14 Interpretation: Report reviewed. 08/14 18:59 Order name: IV; Complete Time: 19:13 08/14 19:07 Order name: Labs collected and sent; Complete Time: 19:53 08/14 20:38 Order name: Knee Immobilizer; Complete Time: 23:08 08/14 22:15 Order name: Crutches; Complete Time: 23:31 08/14 22:16 Order name: Accucheck Blood Glucose; Complete Time: 23:05 08/14 22:16 Order name: Vital Signs: update to include blood pressure; Complete Time: 23:05 cp Administered Medications: 19:20 Drug: morphine IVP or IV 4 mg IVP once over 4 mins Route: IVP; Infused Over: 4 mins; ha1 Site: left antecubital; 19:50 Follow up: Response: No adverse reaction; Pain is decreased; RASS: Alert and Calm (0) ha1 22:01 Drug: Insulin Regular Human IVP 7 units IVP once {Co-Signature: pf1 (Trista Meadows RN).} Route: IVP; Site: left antecubital; 23:30 Follow up: Response: No adverse reaction ha1 22:02 Drug: Potassium PO Effervescent Tablet 50 mEq PO once; dissolve in 4 ounces of water or kl juice Route: PO; 23:30 Follow up: Response: No adverse reaction ha1 22:02 Drug: NS 0.9% IV 1000 ml IV at 1 bolus Per protocol; 1000 mL bolus Route: IV; Rate: 1 kl bolus; Site: left antecubital; 23:30 Follow up: Response: No adverse reaction; IV Status: Completed infusion; IV Intake: ha1 1000ml 22:16 CANCELLED (Physician Discretion): hydrocodone-[id number] mg-325 mg 1 tabs PO once cp 22:35 Drug: Ibuprofen PO 800 mg PO once Route: PO; ha1 22:40 Drug: morphine IVP or IV 4 mg IVP once over 4 mins Route: IVP; Infused Over: 4 mins; ha1 Site: left antecubital; 23:07 Follow up: Response: No adverse reaction; Pain is decreased; RASS: Alert and Calm (0) ha1 Disposition Summary: 08/14/23 22:42 Discharge Ordered Notes: Location: Home cp Problem: new cp Symptoms: have improved cp Condition: Stable cp Diagnosis - Pain in left knee cp Followup: cp - With: Atul Edwards MD - When: 2 - 3 days - Reason: Recheck today's complaints Discharge Instructions: - Discharge Summary Sheet cp - Elastic Bandage and RICE Therapy cp - How to Use a Knee Immobilizer cp - Acute Knee Pain, Adult cp - Form - Excuse from Work, School, or Physical Activity cp Forms: - Medication Reconciliation Form cp - Thank You Letter cp - Antibiotic Education cp - Prescription Opioid Use cp - Patient Portal Instructions cp - Leadership Thank You Letter cp Prescriptions: - acetaminophen-codeine 300-30 mg Oral tablet - take 2 tablet ORAL route 3 times per day as needed for pain; 16 tablet; cp Refills: 0, Product Selection Permitted - Ibuprofen 800 mg Oral Tablet - take 1 tablet ORAL route every 8 hours As needed take with food; 30 tablet; cp Refills: 0, Product Selection Permitted Addendum: 08/18/2023 08:26 Co-signature as Attending Physician, Raphael Maloney MD I reviewed the patient's care r n provided by the Advanced Practice Provider and agree with the diagnosis and treatment plan. Signatures: Dispatcher [facility] Tawny Marte RN RN kl Nieto, Roman, MD MD rn Page, Corey, PA PA cp Natalya Aguirre RN RN ha1 Judi Novak RN RN kc6 Trista Meadows RN pf1 Corrections: (The following items were deleted from the chart) 08/14 19:23 19:16 CT LEFT KNEE WO CONTRAST ordered. EDMS EDMS :16 22:15 HYDROcodone-acetaminophen PO 10 mg-325 mg 1 tabs PO once ordered. cp cp 08/15 22:28 08/14 19:05 Severity of symptoms: in the emergency department the symptoms have cp improved, EMS administered fentanyl, cp
[2023-08-14] MEDS ORDERED: IBUPROFEN 400 MG TAB ONE (22:54)
[2023-08-15 00:18] VITALS: TEMP 98.4
[2023-08-15 00:26] VITALS: BP 165/98; O2SAT 98
== END 2023-08-14 23:33 | disposition home or self-care (01) ==
LOC: ER 18:54
DX: M25.562 Pain in left knee (principal); I10 Essential (primary) hypertension; K21.9 Gastro-esophageal reflux disease without esophagitis; E78.00 Pure hypercholesterolemia, unspecified; E11.8 Type 2 diabetes mellitus with unspecified complications; W18.30XA Fall on same level, unspecified, initial encounter; Y93.9 Activity, unspecified; Z79.4 Long term (current) use of insulin; Z72.0 Tobacco use
CPT/HCPCS: 96361; 85025; 80048; 36415; 82947; 73700; 73701; 73562; 96375; 96374; 99285; Q9967; J1815